=== PATIENT | male | born 1985 | race Caucasian/White ===

== ENCOUNTER 2018-01-04 10:59 | Emergency (ER) | payer OTHER ==
[2018-01-04 11:32] VITALS: BP 137/85; PULSE 96; RESP 18; TEMP 98.5
[2018-01-04] MEDS ORDERED: ACET/COD 300 MG/30 MG STARTER PACK 6 TAB BTL PO STA (11:55)
--- NOTE | 2018-01-04 11:58 | ED ---
ENT HPI - General Chief complaint: Dental/Oral Stated complaint: Abscess tooth Time Seen by Provider: 01/04/18 11:35 Source: patient, RN notes reviewed Mode of arrival: ambulatory Limitations: no limitations - History of Present Illness Initial comments: 32-year-old male presents emergency Department chief complaint of right sided facial pain and swelling. Patient states that it started last 2 days with slight achy pain but states is now sharp and throbbing. Patient states his poor dentition. He does not have a current dentist denies fever, chills, difficulty swallowing, neck pain or neck stiffness. - Related Data Home Medications Medication Instructions Recorded Confirmed Ibuprofen [Motrin Ib] 600 mg PO Q6H PRN 01/04/18 01/04/18 Previous Rx's Medication Instructions Recorded Ibuprofen [Motrin] 600 mg PO Q8HR PRN #30 tab 01/04/18 Penicillin V Potassium [Pen Vee K] 500 mg PO QID #40 tablet 01/04/18 Allergies Allergy/AdvReac Type Severity Reaction Status Date / Time No Known Allergies Allergy Verified 01/04/18 11:48 Review of Systems ROS Statement: Those systems with pertinent positive or pertinent negative responses have been documented in the HPI. ROS Other: All systems not noted in ROS Statement are negative. Past Medical History Past Medical History: No Reported History History of Any Multi-Drug Resistant Organisms: None Reported Past Surgical History: No Surgical Hx Reported Past Psychological History: No Psychological Hx Reported Smoking Status: Current every day smoker Past Alcohol Use History: Occasional Past Drug Use History: Marijuana General Exam Limitations: no limitations General appearance: alert, in no apparent distress Head exam: Present: atraumatic, normocephalic, normal inspection Eye exam: Present: normal appearance, PERRL, EOMI. Absent: scleral icterus, conjunctival injection, periorbital swelling ENT exam: Present: mucous membranes moist, TM's normal bilaterally, normal external ear exam, other (Moderate right sided mandibular swelling). Absent: normal oropharynx (Poor dentition, multiple dental caries dental erosion. No drainable abscess) Neck exam: Present: normal inspection, full ROM. Absent: tenderness, meningismus, lymphadenopathy Respiratory exam: Present: normal lung sounds bilaterally. Absent: respiratory distress, wheezes, rales, rhonchi, stridor Cardiovascular Exam: Present: regular rate, normal rhythm, normal heart sounds. Absent: systolic murmur, diastolic murmur, rubs, gallop, clicks Skin exam: Present: warm, dry, intact, normal color. Absent: rash Course Vital Signs 01/04/18 11:31 Temperature 98.5 F Pulse Rate 96 Respiratory 18 Rate Blood Pressure 137/85 O2 Sat by Pulse 99 Oximetry Medical Decision Making - Medical Decision Making 32-year-old male presented for right-sided dental pain. Patient has a dental infection early abscess. There is no drainable abscess. Patient started on Pen -Vee K, ibuprofen. Patient will advised to follow-up with dental clinic or his primary dentist. Return parameters were discussed. Disposition Clinical Impression: Dental caries, Dental abscess Disposition: HOME SELF-CARE Condition: Stable Instructions: Dental Abscess (ED) Additional Instructions: Please return to the Emergency Department if symptoms worsen or any other concerns. Prescriptions: Ibuprofen [Motrin] 600 mg PO Q8HR PRN #30 tab PRN Reason: Pain Penicillin V Potassium [Pen Vee K] 500 mg PO QID #40 tablet Is patient prescribed a controlled substance at d/c from ED?: No Referrals: None,Stated [Primary Care Provider] - 1-2 days Time of Disposition: 11:57
== END 2018-01-04 12:16 | disposition home or self-care (01) ==
LOC: EC 10:59
DX: K02.9 Dental caries, unspecified (principal); K04.7 Periapical abscess without sinus; F17.200 Nicotine dependence, unspecified, uncomplicated
CPT/HCPCS: 99282